=== PATIENT | female | born 1940 | race Two or more races ===

== ENCOUNTER 2018-07-31 07:54 | Outpatient (CLI) | payer OTHER | END 2018-07-31 08:01 | disposition home or self-care (01) | LOC: TOM 07:54 | DX: K57.20 Diverticulitis of large intestine with perforation and abscess without bleeding (principal); N82.3 Fistula of vagina to large intestine; K43.9 Ventral hernia without obstruction or gangrene; R10.32 Left lower quadrant pain; Z93.3 Colostomy status | CPT/HCPCS: 74177; Q9965 ==